=== PATIENT | male | born 1955 | race Hispanic/Latino ===

== ENCOUNTER 2018-01-08 20:14 | Observation (INO) | payer OTHER ==
[~2018-01-08] VITALS: Ht 167.6 cm; Wt 81.4 kg
[~2018-01-08 20:14] MED LIST: HYDROCHLOROTH12.5 MG PO; VYTORIN 10-801 EACH PO
--- OUTSIDE RECORDS SUMMARY | 2018-01-08 20:17 | XMS REPORT ---
Author Author [facility] Address Unknown Phone Unavailable Care Team Providers Care Jammer Hooker Name Role Phone JULIANN DOUGHERTY Unavailable Unavailable Problems This patient has no known problems. Allergies, Adverse Reactions, Alerts This patient has no known allergies or adverse reactions. Medications This patient has no known medications. Results Test Description Test Time Test Comments Text Results Atomic Results Result Comments CHEST SINGLE (PORTABLE) [place] [id number] Patient Name: DERIC ROCHA MR #: [id number] : 1955 Age/Sex: 62/M Req #: [id number] Adm Physician: Ordered by: JULIANN DOUGHERTY MD Report #: [id number] Location: ER Room/Bed: Procedure: [id number] DX/CHEST SINGLE (PORTABLE) Exam Date: 07/26/17 Exam Time: 0056 REPORT STATUS: Signed EXAM: CHEST SINGLE (PORTABLE), AP 1 view DATE: 07/26/2017 12:37 AM Time stamp on exam: 0056 hours INDICATION: Chest pain COMPARISON: PA and lateral view of the chest October 15, 2009 FINDINGS: LINES/TUBES: None LUNGS: No consolidations or edema. PLEURA: No effusions or pneumothorax. HEART AND MEDIASTINUM: Normal size and contour. BONES AND SOFT TISSUES: No acute findings. IMPRESSION: No acute thoracic abnormality. Signed by: Dr. Flako Mosqueda M.D. on 07/26/2017 1:17 AM Dictated By: FLAKO MOSQUEDA MD 6 Transcribed By: KASSI on 07/26/17116 COPY TO: JULIANN DOUGHERTY MD
[2018-01-08] MEDS ORDERED: ASPIR 8181 MG PO (20:22)
[2018-01-08] MEDS ORDERED: NITROGLYCERIN 2% OINT 1 GM PKT TOP ONE (20:30)
[2018-01-08] MEDS ORDERED: ASPIRIN 81 MG CHEW TAB PO ONE (20:30)
[2018-01-08 20:37] LABS: BASOPHILS % 0.7 % (0.0-1.0); EOSINOPHILS # (AUTO) 0.1 (0.0-0.4); EOSINOPHILS % 1.4 % (0.0-6.0); HEMATOCRIT 40.9 % (38.2-49.6); HEMOGLOBIN 14.2 g/dL (14.0-18.0); LYMPHOCYTES # (AUTO) 1.1 (1.0-3.2); LYMPHOCYTES % 27.1 % (18.0-39.1); MEAN CORPUSCULAR HGB CONC 34.7 g/dL (31-35); MEAN CORPUSCULAR VOLUME 86.5 fL (81-99); MONOCYTES # (AUTO) 0.4 (0.2-0.8); MONOCYTES % 8.6 % (4.4-11.3); NEUTROPHILS # (AUTO) 2.6 (2.1-6.9); PLATELET COUNT 202 x10e3/uL (140-360); RED BLOOD COUNT 4.73 x10e6/uL (4.3-5.7); RED CELL DISTRIBUTION WIDTH 11.9 % (11.7-14.4)
[2018-01-08 20:45] LABS: INR 1.03; PROTHROMBIN TIME 12.7 seconds (11.9-14.5)
[2018-01-08 20:46] LABS: PARTIAL THROMBOPLASTIN TIME 24.2 seconds (23.8-35.5)
[2018-01-08 20:55] LABS: ALANINE AMINOTRANSFERASE 29 IU/L (0-55); ALBUMIN 4.4 g/dL (3.5-5.0); ALBUMIN/GLOBULIN RATIO 1.9 (0.8-2.0); ALKALINE PHOSPHATASE 69 IU/L (40-150); ANION GAP 14.6 mmol/L (8-16); BLOOD UREA NITROGEN 13 mg/dL (7-26); BUN/CREATININE RATIO 15 (6-25); CALCIUM 9.1 mg/dL (8.4-10.2); CARBON DIOXIDE 24 mmol/L (22-29); CHLORIDE 108 mmol/L (98-107); CREATINE KINASE 199 IU/L (30-200); CREATININE, SERUM 0.87 mg/dL (0.72-1.25); EST GLOMERULAR FILTRATION RATE > 60 ML/MIN (60-); GLUCOSE 110 mg/dL (74-118); MAGNESIUM 2.1 MG/DL (1.3-2.1); POTASSIUM 3.6 mmol/L (3.5-5.1); SODIUM 143 mmol/L (136-145)
[2018-01-08 20:59] LABS: BILIRUBIN,URINE NEGATIVE (NEGATIVE); COLOR,URINE YELLOW (YELLOW); KETONES,URINE NEGATIVE (NEGATIVE); LEUKOCYTE ESTERASE ,URINE NEGATIVE (NEGATIVE); NITRITE,URINE NEGATIVE (NEGATIVE); PROTEIN,URINE DIPSTICK NEGATIVE (NEGATIVE); URINE UROBILINOGEN 0.2 mg/dL (0.2 - 1)
--- NOTE | 2018-01-08 20:59 | Diagnostic Imaging Report ---
EXAMINATION: CHEST 2 VIEWS INDICATION: \S\CP \S\[id number] \S\2039 COMPARISON: Chest radiograph on 05/29/2009 and 07/26/2017 FINDINGS: PA and lateral views TUBES and LINES: None. LUNGS: Lungs are well inflated. Lungs are clear. There is no evidence of pneumonia or pulmonary edema. PLEURA: No pleural effusion or pneumothorax. HEART AND MEDIASTINUM: The cardiomediastinal silhouette is unremarkable. BONES AND SOFT TISSUES: No acute osseous lesion. Soft tissues are unremarkable. UPPER ABDOMEN: No free air under the diaphragm. IMPRESSION: No acute thoracic abnormality. Signed by: Dr. Laure Roman M.D. on 01/08/2018 8:56 PM
[2018-01-08 21:01] LABS: CLARITY,URINE SL CLOUDY (CLEAR)
--- NOTE | 2018-01-08 21:48 | Diagnostic Imaging Report ---
EXAMINATION: Head CT without contrast. HISTORY:Blurred vision and dizziness. COMPARISON:CT brain from 11/20/2013 and report of MRI brain from 11/21/2013. TECHNIQUE: Multidetector axial images were obtained from the foramen magnum to the vertex without contrast. The images were reconstructed using brain and bone algorithms. Thin section brain images were reformatted into coronal and sagittal planes. Intravenous contrast: None IMAGE QUALITY: Acceptable. FINDINGS: Skull/scalp: Unchanged left frontal bone deformity, irregularity and mild depression likely related to prior trauma or surgery. Parenchyma: Unchanged focal hypodensity in the superior aspect of left cerebellum possibly represents encephalomalacia related to prior trauma or vascular insult. Nonspecific bilateral frontoparietal white matter microvascular ischemic changes are better visualized in prior MRI of the brain. No acute hemorrhage, mass or acute major vascular territorial infarct. Arteries: No density suggestive of thrombosis. Dural sinuses: No abnormal density suggestive of thrombosis. Ventricles: No hydrocephalus or displacement. Extra-axial spaces: No abnormal density. Brain volume: Normal for age. Craniocervical junction: No mass, Chiari malformation, or basilar invagination. Sella: No mass. Paranasal/mastoid sinuses: Imaged portions unremarkable. IMPRESSION: No acute intracranial abnormality. No change since CT brain from 11/20/2013. Chronic findings: 1. Focal chronic encephalomalacia in left cerebellar hemisphere possibly related to prior trauma or vascular insult. 2. Mild supratentorial white matter microvascular ischemic changes. 3. 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 Signed by: Dr. Aisha Ospina M.D. on 01/08/2018 9:45 PM
[2018-01-08] MEDS ORDERED: NITROGLYCERIN 0.4 MG SUBL SL PRN (23:30)
[2018-01-08] MEDS ORDERED: ONDANSETRON HCL INJ 2 MG/ML VIAL IV PRN (23:30)
[2018-01-08] MEDS ORDERED: HYDRALAZINE HCL 20 MG/ML VIAL IV PRN (23:30)
[2018-01-08] MEDS ORDERED: FAMOTIDINE 20 MG/2 ML VIAL IV SCH (23:30)
[2018-01-09] VITALS (10 sets, daily range): BP systolic 112–133; BP diastolic 59–86
[2018-01-09 06:06] LABS: BASOPHILS % 0.7 % (0.0-1.0); EOSINOPHILS # (AUTO) 0.1 (0.0-0.4); EOSINOPHILS % 1.6 % (0.0-6.0); HEMATOCRIT 39.5 % (38.2-49.6); HEMOGLOBIN 13.8 g/dL (14.0-18.0); LYMPHOCYTES # (AUTO) 0.8 (1.0-3.2); LYMPHOCYTES % 18.6 % (18.0-39.1); MEAN CORPUSCULAR HEMOGLOBIN 30.1 pg (28-32); MEAN CORPUSCULAR HGB CONC 34.9 g/dL (31-35); MEAN CORPUSCULAR VOLUME 86.2 fL (81-99); MONOCYTES # (AUTO) 0.4 (0.2-0.8); MONOCYTES % 9.4 % (4.4-11.3); NEUTROPHILS % 69.5 % (38.7-80.0); PLATELET COUNT 200 x10e3/uL (140-360); RED BLOOD COUNT 4.58 x10e6/uL (4.3-5.7)
[2018-01-09 06:39] LABS: ALANINE AMINOTRANSFERASE 25 IU/L (0-55); ALBUMIN 3.8 g/dL (3.5-5.0); ALBUMIN/GLOBULIN RATIO 1.8 (0.8-2.0); ALKALINE PHOSPHATASE 60 IU/L (40-150); ANION GAP 11.7 mmol/L (8-16); BLOOD UREA NITROGEN 12 mg/dL (7-26); BUN/CREATININE RATIO 16 (6-25); CALCIUM 8.8 mg/dL (8.4-10.2); CARBON DIOXIDE 25 mmol/L (22-29); CHLORIDE 112 mmol/L (98-107); CHOL/HDL RATIO 2.7 (3.9-4.7); CHOLESTEROL 114 MD/DL (0-199); CREATINE KINASE 152 IU/L (30-200); CREATININE, SERUM 0.77 mg/dL (0.72-1.25); EST GLOMERULAR FILTRATION RATE > 60 ML/MIN (60-); GLUCOSE 87 mg/dL (74-118); HDL CHOLESTEROL 42 MG/DL (40-60); LDL CHOLESTEROL 51 MG/DL (60-130); POTASSIUM 3.7 mmol/L (3.5-5.1); SODIUM 145 mmol/L (136-145); TRIGLYCERIDES 106 MG/DL (0-149)
[2018-01-09] MEDS ORDERED: ASPIRIN 81 MG ENTERIC COATED PO SCH (09:00)
[2018-01-09] MEDS ORDERED: ACETAMINOPHEN 325 MG TAB PO PRN (10:00)
--- NOTE | 2018-01-09 14:15 | Diagnostic Imaging Report ---
History: Dizziness. Comparison studies: CT head 29/12/2017, MRI brain 11/21/2013 Technique: Brain: Pre-contrast: Sagittal T2; axial T2, T1-IR, MPGR, DWI, axial and coronal T2 flair 3-D [id number] intracranial MRA. Intravenous contrast: None Findings: Brain: Scalp: No abnormal signal. No masses. Bone marrow: Normal in signal intensity. Brain sulci: Mildly prominent . Ventricles: Normal in size . No hydrocephalus. Parenchyma: Few periventricular and deep white matter T2/FLAIR hyperintensities. Stable subcentimeter cortical based hyperintensity in the left superior cerebellar hemisphere. No masses, hemorrhage, acute or chronic vascular insults. Suprasellar region: No abnormalities. Craniocervical junction: No abnormalities. Patent foramen magnum. No Chiari one malformation Vessels: Normal flow-voids in the arteries and sinuses. . Mucosal thickening at the right maxillary sinus, nonspecific Intracranial MRA: Internal carotid arteries: Patent. Hypoplastic right A1 segment. Patent bilateral ACAs and MCAs Vertebrobasilar circulation: Patent. Patent bilateral engineering inspection assistant. Anatomical variants: Acom: Patent Pcom: Not visualized Vertebral arteries:Codominant IMPRESSION: Brain MRI: 1. No acute intracranial abnormality. 2. Mild chronic microvascular ischemic changes of the white matter. Stable. 3. Stable subcentimeter hyperintensity in the left superior cerebellum, nonspecific. Intracranial MRA: 1. No abnormalities . Signed by: DR Nicolas Antoine M.D. on 01/09/2018 2:12 PM
--- NOTE | 2018-01-09 14:15 | Diagnostic Imaging Report ---
History: Dizziness. Comparison studies: CT head 29/12/2017, MRI brain 11/21/2013 Technique: Brain: Pre-contrast: Sagittal T2; axial T2, T1-IR, MPGR, DWI, axial and coronal T2 flair 3-D [id number]-[id number] intracranial MRA. Intravenous contrast: None Findings: Brain: Scalp: No abnormal signal. No masses. Bone marrow: Normal in signal intensity. Brain sulci: Mildly prominent . Ventricles: Normal in size . No hydrocephalus. Parenchyma: Few periventricular and deep white matter T2/FLAIR hyperintensities. Stable subcentimeter cortical based hyperintensity in the left superior cerebellar hemisphere. No masses, hemorrhage, acute or chronic vascular insults. Suprasellar region: No abnormalities. Craniocervical junction: No abnormalities. Patent foramen magnum. No Chiari one malformation Vessels: Normal flow-voids in the arteries and sinuses. . Mucosal thickening at the right maxillary sinus, nonspecific Intracranial MRA: Internal carotid arteries: Patent. Hypoplastic right A1 segment. Patent bilateral ACAs and MCAs Vertebrobasilar circulation: Patent. Patent bilateral professional application designer. Anatomical variants: Acom: Patent Pcom: Not visualized Vertebral arteries:Codominant IMPRESSION: Brain MRI: 1. No acute intracranial abnormality. 2. Mild chronic microvascular ischemic changes of the white matter. Stable. 3. Stable subcentimeter hyperintensity in the left superior cerebellum, nonspecific. Intracranial MRA: 1. No abnormalities . Signed by: DR Nicolas Antoine M.D. on 01/09/2018 2:12 PM
--- NOTE | 2018-01-09 16:29 | Consultation ---
DATE OF CONSULTATION: January 09, 2018 HISTORY OF PRESENT ILLNESS: Mr. Crawford is a 62-year-old [id number] man with past medical history significant for hypertension, treated with diet and exercise, hyperlipidemia, and prior stroke without residual deficits who presented to [facility] on January 08, 2018 with transient neurological deficits. On the afternoon of admission, the patient was waxing his car in his garage. Mr. Crawford reports the garage doors were open, and the garage was well ventilated. After approximately 3 1/2 hours, the patient went inside to eat dinner. While seated at the table, the patient experienced the abrupt onset of fluttering of the eyes, blurred vision effecting the left eye more than the right eye, and the appearance of red and blue colors throughout his field of vision. Mr. Crawford proceeded upstairs to his bedroom where he checked his blood pressure. His blood pressure was found to be 170/102 mmHg. The patient informed his of his elevated blood pressure. She advised him to lie down on the bed and relax for a few minutes. During this time, the patient's visual symptoms spontaneously resolved. Several minutes later, a repeat blood pressure revealed a systolic blood pressure of 140 mmHg. Within a few minutes, the patient developed a sensation of pressure or tightness across his chest as well as a sensation of unsteadiness or imbalance and poor concentration. He checked his blood pressure again and saw it had risen. The patient's then brought him to the emergency center at [facility] for further evaluation and treatment. While in the emergency center, the patient underwent a CT of the brain without contrast. This study revealed focal chronic encephalomalacia in the left cerebellar hemisphere, possibly related to a prior vascular insult or trauma. There were changes compatible with chronic small vessel ischemic disease as well. Mr. Crawford was admitted to telemetry at [facility] for further evaluation and treatment. REVIEW OF SYSTEMS: Changes in vision, confusion, blurred vision, impaired balance. Otherwise, the 12-point review of systems is negative. 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 PAST SURGICAL HISTORY: Inguinal hernia repair in childhood, traumatic brain injury with placement of left frontal metal plate in childhood, right knee arthroscopy, and prostatectomy. PAST HOSPITALIZATIONS: Mr. Crawford has been hospitalized for the surgeries listed above, once for chest pain, and once for cardiac catheterization. It should be noted the cardiac catheterization was normal. FAMILY HISTORY: The patient's paternal grandmother is . She from a myocardial infarction. The patient's father is alive. He has coronary artery disease and is status post CABG. The patient's mother is alive and healthy. The patient's brothers and sisters are all reportedly healthy. The patient has 2 children. His son has experienced similar symptoms as described in the history of present illness in the setting of high blood pressure. The patient's daughter is healthy. SOCIAL HISTORY: Mr. Crawford is . He completed his education through the 8th grade. He works as a metal fitters and machinists. The patient endorses a remote history of tobacco use, but quit smoking 20 years ago. The patient drinks 3-4 beers occasionally. He does not report current or prior recreational drug use. MEDICATIONS: 1. Aspirin 81 mg by mouth daily. 2. Vytorin 10 mg/80 mg by mouth at bedtime. 3. Advil by mouth as needed for headache. ALLERGIES: NO KNOWN DRUG ALLERGIES. NO KNOWN FOOD ALLERGIES. NO KNOWN ALLERGY TO LATEX. NO KNOWN ALLERGY TO INTRAVENOUS CONTRAST MATERIALS. PHYSICAL EXAMINATION VITAL SIGNS: Height 66 inches, weight 185 pounds, BMI 29.9 kg per meter squared. Blood pressure 127/84, pulse 63, respirations 18, oxygen saturation is 98% on room air. GENERAL: The patient is awake and alert, does not appear distressed. Overweight. HEENT: Normocephalic, atraumatic. Pupils are equal, round and reactive to light. Moist mucous membranes. NECK: Supple. No appreciable thyromegaly. No appreciable carotid bruits. CARDIOVASCULAR: S1, S2, regular rate and rhythm. No murmurs, rubs or gallops RESPIRATORY: Clear to auscultation bilaterally. No wheezes, rhonchi or rales. EXTREMITIES: The skin is warm and dry. No clubbing, cyanosis or edema. The posterior tibial and dorsalis pedis pulses are 2+ and symmetric. SKIN: No rashes or lesions. NEUROLOGIC: Memory/Attention: The patient is awake and alert, oriented to person, place, time, and situation. Cranial nerves: Cranial nerve I--not tested. Cranial nerve II, III, IV, and --pupils are equal and round, react briskly to light (from 4 mm to 2 mm), extraocular movements intact, no nystagmus. Cranial nerve V--sensation to light touch and pin prick is intact in the bilateral V1-V3 distributions. Strength of the temporalis and masseter muscles is within normal limits. Cranial nerve VII--the face is symmetric as are all facial movements. Strength is within normal limits. Cranial nerve VIII--hearing is intact to finger rub bilaterally. Cranial nerve IX, X--the soft palate elevates equally and symmetrically. Cranial nerve XII--normal strength of the bilateral sternocleidomastoid and trapezius muscles. Cranial nerve XII--the tongue protrudes midline and moves symmetrically from side to side. Strength: Bulk is normal and strength is 5/5 in the bilateral deltoids, biceps, triceps, wrist flexors and extensors, finger flexors and extensors, intrinsic hand muscles, hip flexors, knee flexors and extensors, ankle dorsiflexion and plantar flexion, and intrinsic foot muscles. Tone is normal. DTRs: Deep tendon reflexes are 2+ and symmetric at the triceps, biceps, brachial radialis, patellas, and Achilles. Plantar responses are flexor bilaterally. Sensation: Sensation is intact to light touch and pin prick in both arms and both legs. Cerebellar: Gpjewl-okxa-iuuzre and heel cardenas movements are intact without dysmetria or other impairment. Rapid alternating movements are intact. Gait: Deferred. Speech: Spontaneous speech is normal without appreciable dysarthria or aphasia. Repetition is intact. Involuntary Movements: None. Pronator Drift: None. LABORATORY DATA: Sodium 145, potassium 3.7, chloride 112, carbon dioxide 25, anion gap 11.7, BUN 12, creatinine 0.77. Estimated GFR greater than 60. BUN to creatinine ratio 16, glucose 87, calcium 8.8. Magnesium 2.1. Total bilirubin 0.5, AST 19, ALT 25, alkaline phosphatase 60, creatinine kinase 199 and 152. CK MB 2.70 and 2.00. Troponin I less than 0.001 and 0.004. B-natriuretic peptide 16.3, total protein 5.9, albumin 3.8, globulin 2.1, albumin to globulin ratio 1.8, total cholesterol 114, triglycerides 106, LDL 51, HDL 42. CBC with differential and platelets reveals a white blood cell count of 4.25 with a normal differential. Hemoglobin and hematocrit are 13.8 and 39.5 respectively. The platelet count is 200,000. PT 12.7, INR 1.03, PTT 24.2. Urinalysis shows no evidence of infection. DIAGNOSTIC STUDIES: Chest x-ray 01/08/2018: No acute thoracic abnormalities. CT of brain without contrast on 01/08/2018: 1. Focal chronic encephalomalacia in left cerebellar hemisphere, possibly related to prior vascular insult or trauma. 2. Mild supratentorial white matter microvascular ischemic changes. 3. 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 ASSESSMENT AND PLAN: Mr. Crawford is a 62-year-old right-hand dominant man with past medical history significant for hypertension treated with diet and exercise, hyperlipidemia, and a prior stroke without residual deficits who presented to [facility] with transient neurologic deficits. The patient's general physical and neurological examinations are normal/nonfocal. The patient's laboratory data and diagnostic studies have been reviewed and are documented above. Mr. Crawford experienced transient visual disturbance as described in the history of present illness. His neurological impairment resolved after approximately 7-8 minutes. The description of his symptoms and their transient nature is concerning for a transient ischemic attack. Another possible, though less likely diagnosis, in my opinion, is hypertensive emergency. Given the patient's remote and recent medical histories, a complete stroke evaluation is recommended. 1. A lipid panel has been drawn and the results are detailed above. A hemoglobin A1c will be ordered. 2. MRI of the brain without contrast. 3. MRA of the brain without contrast. 4. Echocardiogram. 5. Bilateral carotid artery ultrasound. 6. The occurrence of a transient ischemic attack while on daily aspirin therapy indicates treatment failure with aspirin. Therefore, aspirin 81 mg by mouth daily will be discontinued. Mr. Crawford will be prescribed Plavix 75 mg by mouth daily for stroke prophylaxis. 7. Allow permissive hypertension pending the results of the patient's vascular studies. 8. Mr. Crawford's cholesterol is well controlled. Treatment with Vytorin 10 mg/80 mg by mouth at bedtime will be continued. 9. Hemoglobin A1c is pending. 10. The patient has no neurological deficits at present. Speech and physical therapy evaluations will be deferred. 11. The patient is tolerating PO. GI prophylaxis is not necessary. 12. The patient is ambulatory. Chemical DVT prophylaxis is not necessary. 13. Defer treatment of other medical comorbidities to the primary care and other services. Thank you for this consultation. I will continue to follow this patient with you while he remains in the hospital. Time spent: 70 minutes. Job#: [id number] [id number]
[2018-01-09] MEDS ORDERED: EZETIMIBE 10 MG TAB PO SCH (21:00)
[2018-01-09] MEDS ORDERED: SIMVASTATIN 80 MG TAB PO SCH (21:00)
[2018-01-10] VITALS: BP 108/62
[2018-01-10 04:00] VITALS: BP 100/63
[2018-01-10 08:00] VITALS: BP 129/77
[2018-01-10] MEDS ORDERED: NON-FORMULARY MEDICATION (Ezetimibe/Simvastatin (Vytorin 10-80 Mg Tablet) 1 TAB) PO SCH (09:00)
[2018-01-10] MEDS ORDERED: CLOPIDOGREL BISULFATE 75 MG TAB PO SCH (09:00)
[2018-01-10] MEDS ORDERED: CEFTRIAXONE SOD 1 GM VIAL IV SCH (10:30)
[2018-01-10] MEDS ORDERED: PLAVIX75 MG PO (11:42)
[2018-01-10 11:52] VITALS: BP 142/89
--- NOTE | 2018-01-10 16:29 | Discharge Summary ---
PRIMARY CARE PHYSICIAN: Dr. Varghese Tate. FINAL DIAGNOSES 1. Transient ischemic attack. 2. Hypercholesterolemia. ASSEMBLY INSPECTOR: Dr. Gayle, neurology. PROCEDURES, STUDIES PERFORMED: 1. CT which did not show any acute disease. 2. Brain MRI normal. 3. Head MRA normal. 4. Carotid Doppler done, reading still pending. 5. Echocardiogram done, reading still pending. HISTORY: Per H and P. HOSPITAL COURSE: The patient was admitted for vision changes and dizziness. Upon further evaluation, it was felt that this is consistent with a TIA which lasted for about 10 minutes. Therefore, this is deemed aspirin failure. Therefore, the patient was discontinued on aspirin and started on Plavix. I will follow up on his carotid, Doppler and echocardiogram to make sure that they are okay. The patient will follow up with both his primary care physician and neurology as an outpatient. He will continue on Vytorin for his hypercholesterolemia. CONDITION ON DISCHARGE: Stable. DISCHARGE MEDICATIONS: Please see medication reconciliation form. The patient was seen and examined today. CAROLYNN PAREKH M.D. Job#: [id number] GH cc:VARGHESE TATE MD
== END 2018-01-10 12:15 | disposition home or self-care (01) ==
LOC: ER 20:14 → ERHOLD 23:37 → IMCU 23:54
PROVIDERS: ADMIT Internal Medicine; ATTEND Internal Medicine
DX: G45.9 Transient cerebral ischemic attack, unspecified (principal); R42 Dizziness and giddiness; R07.9 Chest pain, unspecified; I10 Essential (primary) hypertension; H53.8 Other visual disturbances; E78.5 Hyperlipidemia, unspecified; Z86.73 Personal history of transient ischemic attack (TIA), and cerebral infarction without residual deficits; E78.00 Pure hypercholesterolemia, unspecified
CPT/HCPCS: 36415 ×2; 70450; 70544; 70551; 71046; 80053 ×2; 80061; 81001; 82550 ×2; 82553 ×2; 83036; 83735; 83880; 84484 ×2; 85025 ×2; 85610; 85730; 93005; 93306; 93880; 99284; G0378 ×3; J2405